=== PATIENT | male | born 2000 | race Caucasian/White ===

== ENCOUNTER → 2020-03-27 | Outpatient (CLI) | payer OTHER | LOC: M LABSMTC 13:49 | PROVIDERS: ATTEND Family Medicine | DX: Z20.828 Contact with and (suspected) exposure to other viral communicable diseases (principal) ==

== ENCOUNTER → 2020-05-18 | Outpatient (CLI) | payer SELFPAY | LOC: M LABSMTC 13:45 | PROVIDERS: ATTEND Pediatrics | DX: Z20.828 Contact with and (suspected) exposure to other viral communicable diseases (principal) ==

== ENCOUNTER → 2020-05-26 | Outpatient (CLI) | payer SELFPAY | LOC: M LABSMTC 09:59 | PROVIDERS: ATTEND Pediatrics | DX: Z20.822 Contact with and (suspected) exposure to COVID-19 (principal) ==

== ENCOUNTER → 2022-05-29 | Outpatient (REF) | payer OTHER | LOC: M LAB REF 19:22 | PROVIDERS: ATTEND Physician Assistant | DX: L02.31 Cutaneous abscess of buttock (principal) ==